=== PATIENT | male | born 1965 | race Two or more races ===

== ENCOUNTER 2017-02-03 08:51 | Emergency (ER) | payer SELFPAY ==
[~2017-02-03] VITALS: Ht 170.2 cm; Wt 104.3 kg
--- NOTE | ~2017-02-03 | CR141 ---
[facility] A Service of [facility] RADIOLOGY TEXT RESULTS PATIENT: KIRAN BOYCE LOCATION: [facility] : 69 UNIT #: [id number] AGE: [address]: AYANA JUSTIN SEX: M ORDER DR: [id number] [facility] [address] [place], [place] [address] [id number] E MR#: [id number] Acc #: [id number] NAME: KIRAN BOYCE : 1965 SEX: M STUDY DATE/TIME: 02/03/2017 09:27 UNIT: [facility] ROOM: STUDY DESCRIPTION: CR Hand Min 3 Views Lt Attending Physician: Ayana Justin Aprn Ordering Physician: Ayana Justin Aprn Primary Care Physician: Generic Doctor Not In System MEDICAL IMAGING REPORT This report is preliminary unless electronic signature is present EXAM Left hand 3 views, 02/03/2017 0927 hours HISTORY Patient smashed fourth and fifth fingers this morning. Pain in the fourth and fifth fingers with laceration at fifth finger. COMPARISON None. FINDINGS AP, lateral and oblique views demonstrate normal bone density. Distal radius and ulna, carpal bones, metacarpal bones are normal. There is no fracture at the thumb, second, third or fourth finger. There is an open fracture at the distal aspect of the distal phalanx of the fifth finger with a displaced fragment in the palmar and radial direction. There is no definite foreign body. IMPRESSION There is an acute, open fracture of the distal aspect distal phalanx of the fifth finger with fracture fragment displaced in the radial and palmar direction. There appears to be an associated open wound. No fracture seen at the fourth finger. Dictated by... Yuli Whittaker M.D. THIS IS AN ELECTRONICALLY VERIFIED REPORT Yuli Whittaker M.D. at 02/03/2017 2:28 PM M/joceline [facility] A Service of [facility] RADIOLOGY TEXT RESULTS PATIENT: KIRAN BOYCE LOCATION: [facility] : 69 UNIT #: [id number] AGE: [address]: AYANA JUSTIN SEX: M ORDER DR: TD: 02/03/2017 11:40 JOB #: [id number] MEDICAL IMAGING REPORT Page 1 of 1 COPY
== END 2017-02-03 11:31 | disposition short-term general hospital (02) ==
LOC: CFTX 08:51 → CED 08:51 → CFTX 09:42
DX: S62.637B Displaced fracture of distal phalanx of left little finger, initial encounter for open fracture (principal); F17.210 Nicotine dependence, cigarettes, uncomplicated; W23.0XXA Caught, crushed, jammed, or pinched between moving objects, initial encounter; Y93.89 Activity, other specified; Y92.69 Other specified industrial and construction area as the place of occurrence of the external cause; Y99.0 Civilian activity done for income or pay
CPT/HCPCS: 29130; 73130; 99284